=== PATIENT | female | born 2000 | race Caucasian/White ===

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

== ENCOUNTER 2019-01-19 20:26 | Emergency (ER) | payer OTHER ==
[2019-01-19] MEDS ORDERED: Ondansetron ODT TAB* 4 MG PO ONE (22:24)
--- NOTE | 2019-01-19 22:27 | ED ---
Headache - HPI Summary HPI Summary: Pt is a 18 y/o female who presents to the ED s/p head injury. Yesterday she was sitting on top of a vance in a restaurant and fell backwards. Pt hit the back of her head on the edge of a table, but denies any LOC. She went to [facility] and was told that she had a mild concussion, and to come to the ED for a brain CT just in case. As per friend, she was confused last night. Pt currently c/o severe headache, blurred vision, and nausea. She denies any vomiting. Pt denies playing sports. She has a hx of one prior concussion and migraines. LNMP 2 weeks ago. - History Of Current Complaint Chief Complaint: EDHeadInjury Stated Complaint: HEAD INJURY PER PT Time Seen by Provider: 01/19/19 22:14 Hx Obtained From: Patient Onset/Duration: Sudden Onset, Started days ago - Last night, Still Present Currently Pain Is: Severe Timing: Constant Aggravating Factor: Nothing Allevating Factors: Nothing Associated Signs And Symptoms: Nausea, Visual Changes - blurred Related History: Similar Episode/DX As: - hx concussion, Recent Trauma: - hit head last night - Allergies/Home Medications Allergies/Adverse Reactions: Allergies Allergy/AdvReac Type Severity Reaction Status Date / Time cefdinir [From Omnicef] Allergy Unknown Verified 01/01/19 23:52 Reaction Details clarithromycin [From Biaxin] Allergy Unknown Verified 01/01/19 23:52 Reaction Details levofloxacin [From Levaquin] Allergy Unknown Verified 01/01/19 23:52 Reaction Details PMH/Surg Hx/FS Hx/Imm Hx Endocrine/Hematology History: Denies: Hx Anticoagulant Therapy Cardiovascular History: Denies: Hx Hypertension Respiratory History: Denies: Hx Asthma History: Denies: Hx Dialysis Sensory History: Denies: Hx Eye Prosthesis, Hx Legally Blind, Hx Deafness Opthamlomology History: Denies: Hx Eye Prosthesis, Hx Legally Blind Neurological History: Reports: Hx Migraine - chronic, Other Neuro Impairments/ Disorders - concussion Psychiatric History: Reports: Hx Attention Deficit Hyperactivity Disorder Infectious Disease History: No Infectious Disease History: Denies: Traveled Outside the [place] in Last 30 Days - Family History Known Family History: Negative: Cardiac Disease, Blood Disorder - Social History Alcohol Use: Occasionally Hx Substance Use: No Substance Use Type: Reports: None Hx Tobacco Use: No Smoking Status (MU): Never Smoked Tobacco Review of Systems Positive: Blurred Vision Positive: Nausea. Negative: Vomiting Neurological: Other - confusion - resolved Positive: Headache All Other Systems Reviewed And Are Negative: Yes Physical Exam - Summary Physical Exam Summary: Appearance: well appearing, no pain distress Skin: warm, dry, reflects adequate perfusion Head/face: minor swelling of right occiput Eyes: EOMI, ANGEL ENT: mucous membranes moist Neck: supple, non-tender Respiratory: CTA, breath sounds present Cardiovascular: RRR, pulses symmetrical Abdomen: non-tender, soft Bowel Sounds: present Musculoskeletal: normal, strength/ROM intact Neuro: normal, sensory motor intact, A&Ox3 Triage Information Reviewed: Yes Vital Signs On Initial Exam: Initial Vitals Temp Pulse Resp BP Pulse Ox 98.9 F 100 16 113/66 100 01/19/19 20:31 01/19/19 20:31 01/19/19 20:31 01/19/19 20:31 01/19/19 20:31 Vital Signs Reviewed: Yes Diagnostics - Vital Signs Vital Signs Temp Pulse Resp BP Pulse Ox 01/19/19 20:31 98.9 F 100 16 113/66 100 - Laboratory Lab Statement: Any lab studies that have been ordered have been reviewed, and results considered in the medical decision making process. - CT Brain CT CT Interpretation Completed By: Radiologist Summary of CT Findings: No traumatic intracranial abnormalities. ED physician reviewed radiology report. Headache Course/Dx - Course Course Of Treatment: Nurse's notes reviewed. Patient with significant head injury with neurologic symptoms since. Referred here for head CT which was negative. She has symptoms consistent with mild concussion. GCS 15. Ambulatory without difficulty. Follow-up with [facility]. - Diagnoses Differential Diagnosis/HQI/PQRI: Epidural Hematoma, Subdural Hematoma, Other - Concussion Provider Diagnoses: Concussion without loss of consciousness Discharge - Sign-Out/Discharge Documenting (check all that apply): Patient Departure - Discharge Patient Received Moderate/Deep Sedation with Procedure: No - Discharge Plan Condition: Improved Disposition: HOME Prescriptions: Ondansetron ODT TAB* [Zofran 4 MG Odt TAB*] 4 mg PO Q8H PRN #10 tab.odt PRN Reason: Nausea Patient Education Materials: Concussion (ED) Referrals: [facility] [Provider Group] No Primary Care Phys,NOPCP [Primary Care Provider] - Additional Instructions: Stay well-hydrated. Avoid second injury. Stay in quiet, darkened room sent avoid fine print reading and electronic devices. Return with severe headache, repetitive vomiting, worse, new symptoms or other concerns. Follow-up with [facility]. - Billing Disposition and Condition Condition: IMPROVED Disposition: Home - Attestation Statements Document Initiated by Scribe: Yes Documenting Scribe: Kaity Styles Provider For Whom Scribe is Documenting (Include Credential): Beni Lynn MD Scribe Attestation: Kaity Maldonado, scribed for Beni Lynn MD on 01/20/19 at 0034. Scribe Documentation Reviewed: Yes Provider Attestation: The documentation as recorded by the Kaity kunz accurately reflects the service I personally performed and the decisions made by , Beni Lynn MD Status of Scribe Document: Viewed
[2019-01-19 22:28] VITALS: BP 118/66
== END 2019-01-19 22:26 | disposition home or self-care (01) ==
LOC: ED 20:26
DX: S06.0X0A Concussion without loss of consciousness, initial encounter (principal); W17.89XA Other fall from one level to another, initial encounter; Y92.511 Restaurant or cafe as the place of occurrence of the external cause; Z88.1 Allergy status to other antibiotic agents
CPT/HCPCS: 70450; 99282; A9270-GY